=== PATIENT | female | born 2000 | race Caucasian/White ===

== ENCOUNTER 2019-12-12 19:26 | Observation (INO) | payer OTHER ==
[~2019-12-12] VITALS: Ht 157.5 cm; Wt 61.2 kg
[2019-12-12 20:29] LABS: APPEARANCE,URINE CLEAR (CLEAR); BILIRUBIN,URINE NEGATIVE (NEGATIVE); UA COLOR YELLOW (YELLOW); UROBILINOGEN,URINE NORMAL (NEGATIVE)
[2019-12-12] MEDS ORDERED: PNV1TABL26 PO (21:22)
== END 2019-12-12 21:30 | disposition home or self-care (01) ==
LOC: ATP 19:26
PROVIDERS: ADMIT Obstetrics & Gynecology; ATTEND Obstetrics & Gynecology
DX: O62.9 Abnormality of forces of labor, unspecified (principal); O42.913 Preterm premature rupture of membranes, unspecified as to length of time between rupture and onset of labor, third trimester; O34.63 Maternal care for abnormality of vagina, third trimester; N89.8 Other specified noninflammatory disorders of vagina; Z87.891 Personal history of nicotine dependence; Z3A.35 35 weeks gestation of pregnancy; Z79.899 Other long term (current) drug therapy
CPT/HCPCS: 59025; 80307; 81000; 84112; 87086; G0378 ×2

== ENCOUNTER 2020-01-04 18:04 | Observation (INO) | payer OTHER ==
[~2020-01-04] VITALS: Ht 157.5 cm; Wt 61.2 kg
[~2020-01-04 18:04] MED LIST: PNV1TABL26 PO
[2020-01-04 19:30] LABS: APPEARANCE,URINE CLEAR (CLEAR); BILIRUBIN,URINE NEGATIVE (NEGATIVE); UA COLOR YELLOW (YELLOW); UROBILINOGEN,URINE NEGATIVE (NEGATIVE)
[2020-01-04 19:48] VITALS: BP 120/63
== END 2020-01-04 20:15 | disposition home or self-care (01) ==
LOC: ATP 18:04
PROVIDERS: ADMIT Obstetrics & Gynecology; ATTEND Obstetrics & Gynecology
DX: O36.8130 Decreased fetal movements, third trimester, not applicable or unspecified (principal); O99.89 Other specified diseases and conditions complicating pregnancy, childbirth and the puerperium; M54.5 Low back pain; R10.2 Pelvic and perineal pain; Z3A.38 38 weeks gestation of pregnancy; Z87.891 Personal history of nicotine dependence
CPT/HCPCS: 59025; 80307; 81003; 87081; G0378

== ENCOUNTER → 2020-01-07 | Outpatient (CLI) | payer OTHER | END | disposition home or self-care (01) | LOC: LAB 11:18 | PROVIDERS: ATTEND Obstetrics & Gynecology | DX: Z34.03 Encounter for supervision of normal first pregnancy, third trimester (principal); Z3A.00 Weeks of gestation of pregnancy not specified | CPT/HCPCS: 36415; 86592 ==

== ENCOUNTER → 2020-01-19 | Outpatient (CLI) | END | disposition home or self-care (01) | LOC: NPLAB 18:26 | PROVIDERS: ATTEND Obstetrics & Gynecology | DX: Z20.828 Contact with and (suspected) exposure to other viral communicable diseases (principal) | CPT/HCPCS: U0003-CS ==

== ENCOUNTER → 2020-01-20 | Outpatient (CLI) ==
--- NOTE | 2020-01-20 16:54 | DIREP ---
PROCEDURE:US BIOPHYSICAL PROFILE W/O NON STRESS COMPARISON:None. INDICATIONS:THIRD TRIMESTER, IUP @ 40 WEEKS FINDINGS: Breathing:Normal, 2. Movement:Normal, 2. Tone:Normal, 2. Fluid:Normal, 2. Total: 8, 8 Number:Gabriel. Position:Cephalic. Placenta:Fundal. No previa. Amniotic Fluid Volume:Largest vertical pocket: 7.0 cm, (normal is 2-8 cm). Cervix:Measures 2.9 cm. Heart Rate:140 bpm. Biparietal Diameter:10.2 cm,(Out of Range),Out of Range.* Head Circumference:35.6 cm,(41 weeks, 5 days),78.8 percentile.* Abdominal Circumference:38.8 cm,(Out of Range),Out of Range.* Femur Length:7.2 cm,(37 weeks, 0 days),Out of Range.* Estimated Weight:4449 g,(>90 percentile). * *(The percentiles for estimated weight and biometrics are extrapolated from the patients last menstrual period. Depending on the accuracy of the patients dates, the percentiles may or may not be accurate. Clinical correlation is necessary.) Ultrasound GA: 39 weeks, 3 days Ultrasound [place]: January 24, 2020 Clinical GA: 40 weeks, 4 days Clinical [place]: January 16, 2020 anatomic survey was not performed. No abnormalities are seen. CONCLUSION:11/20 biophysical profile. Currently cephalic presentation, no previa. Dating parameters as above. Dictated by: ANILA Physician on 01/20/2020 at 04:22 PM ac
== END | disposition home or self-care (01) ==
LOC: RAD 13:14
PROVIDERS: ATTEND Obstetrics & Gynecology
DX: Z34.03 Encounter for supervision of normal first pregnancy, third trimester (principal); Z3A.39 39 weeks gestation of pregnancy
CPT/HCPCS: 76815; 76819